=== PATIENT | male | born 1980 | race African-American/Black ===

== ENCOUNTER 2017-07-31 20:09 | Emergency (ER) | payer MEDICAID, OTHER ==
[~2017-07-31] VITALS: Ht 185.4 cm; Wt 113.0 kg
[2017-07-31 20:16] VITALS: BP 142/80
== END 2017-08-01 01:26 | disposition left against medical advice (07) ==
LOC: ER 08-01 00:03
DX: Z53.21 Procedure and treatment not carried out due to patient leaving prior to being seen by health care provider (principal); F17.210 Nicotine dependence, cigarettes, uncomplicated; F15.10 Other stimulant abuse, uncomplicated

== ENCOUNTER 2022-09-04 17:59 | Emergency (ER) | payer MEDICAID ==
[~2022-09-04] VITALS: Ht 177.8 cm; Wt 88.0 kg
[2022-09-05 01:51] VITALS: BP 124/78
== END 2022-09-05 01:57 | disposition left against medical advice (07) ==
LOC: ER 17:59
DX: Z53.21 Procedure and treatment not carried out due to patient leaving prior to being seen by health care provider (principal)

== ENCOUNTER 2022-09-27 16:52 | Emergency (ER) | payer MEDICAID ==
[~2022-09-27] VITALS: Ht 193 cm; Wt 100.0 kg
[2022-09-27 17:56] LABS: *AMPHETAMINES SCREEN URINE PRESUMTIVE POSITIVE (NEGATIVE); *BARBITURATES SCREEN URINE NEGATIVE (NEGATIVE); *BENZODIAZEPINES SCREEN URINE NEGATIVE (NEGATIVE); *COCAINE SCREEN URINE NEGATIVE (NEGATIVE); CANNABINOID URINE SCREEN PRESUMTIVE POSITIVE (NEGATIVE); METHADONE URINE SCREEN NEGATIVE (NEGATIVE); OPIATES URINE SCREEN NEGATIVE (NEGATIVE); PHENCYCLIDINE URINE SCREEN PRESUMTIVE POSITIVE (NEGATIVE)
[2022-09-27 18:36] LABS: EOSINOPHILS % 0.1 % (0.0-5.0); HEMATOCRIT. 34.1 % (42.0-52.0); HEMOGLOBIN. 10.8 g/dL (14.0-18.0); LYMPHOCYTES % 26.5 % (20.0-50.0); MEAN CORPUSCULAR HEMOGLOBIN 23.8 pg (28.0-32.0); MEAN CORPUSCULAR VOLUME 75.4 fL (80.0-94.0); MEAN PLATELET VOLUME 8.3 fl (7.4-10.4); MONOCYTES % 12.1 % (2.0-8.0); NEUTROPHILS % 60.3 % (40.0-76.0); PLATELET 236 x1000/uL (130-400); RED BLOOD CELL COUNT 4.52 mill/uL (4.7-6.1); RED CELL DISTRIBUTION WIDTH 20.6 % (11.6-14.6)
[2022-09-27 18:56] LABS: CHLORIDE 101 mEq/L (98-107)
[2022-09-27 19:05] LABS: ETHANOL BLOOD < 10 mg/dL
[2022-09-27] MEDS ORDERED: ACETAMINOPHEN 325MG TABLET PO ONE (23:45)
[2022-09-27] MEDS ORDERED: LORAZEPAM 1MG TABLET PO ONE (23:45)
[2022-09-28] MEDS ORDERED: IBUPROFEN 600MG TABLET PO ONE
[2022-09-28 05:55] VITALS: BP 132/82
== END 2022-09-28 08:58 | disposition home or self-care (01) ==
LOC: ER 16:52
DX: F19.10 Other psychoactive substance abuse, uncomplicated (principal); F41.9 Anxiety disorder, unspecified; I48.91 Unspecified atrial fibrillation; I50.9 Heart failure, unspecified; I25.2 Old myocardial infarction; Z88.6 Allergy status to analgesic agent; Z88.8 Allergy status to other drugs, medicaments and biological substances; Z86.711 Personal history of pulmonary embolism; Z20.822 Contact with and (suspected) exposure to COVID-19
CPT/HCPCS: 36415; 80053; 80305; 80307; 80320; 80329; 85025; 99285; C9803; U0003; U0005; G0480

== ENCOUNTER 2023-03-19 00:31 | Emergency (ER) | payer MEDICAID ==
[~2023-03-19] VITALS: Ht 182.9 cm; Wt 91.0 kg
[2023-03-19 02:15] LABS: *AMPHETAMINES SCREEN URINE PRESUMTIVE POSITIVE (NEGATIVE); *BARBITURATES SCREEN URINE NEGATIVE (NEGATIVE); *BENZODIAZEPINES SCREEN URINE NEGATIVE (NEGATIVE); *COCAINE SCREEN URINE NEGATIVE (NEGATIVE); CANNABINOID URINE SCREEN PRESUMTIVE POSITIVE (NEGATIVE); METHADONE URINE SCREEN NEGATIVE (NEGATIVE); OPIATES URINE SCREEN PRESUMTIVE POSITIVE (NEGATIVE); PHENCYCLIDINE URINE SCREEN PRESUMTIVE POSITIVE (NEGATIVE)
[2023-03-19 03:09] LABS: HEMATOCRIT. 30.4 % (42.0-52.0); HEMOGLOBIN. 9.5 g/dL (14.0-18.0); MEAN CORPUSCULAR HEMOGLOBIN 23.4 pg (28.0-32.0); MEAN CORPUSCULAR VOLUME 74.6 fL (80.0-94.0); PLATELET 201 x1000/uL (130-400); RED BLOOD CELL COUNT 4.08 mill/uL (4.7-6.1)
[2023-03-19 03:11] LABS: CHLORIDE 100 mEq/L (98-107)
[2023-03-19 03:19] LABS: ETHANOL BLOOD < 10 mg/dL
[2023-03-19 06:00] VITALS: BP 122/78
[2023-03-19 06:42] LABS: PLATELET ESTIMATE NORMAL
== END 2023-03-19 08:48 | disposition home or self-care (01) ==
LOC: ER 00:31
DX: Z00.8 Encounter for other general examination (principal); I48.91 Unspecified atrial fibrillation; F41.9 Anxiety disorder, unspecified; I50.9 Heart failure, unspecified; I25.2 Old myocardial infarction; F19.90 Other psychoactive substance use, unspecified, uncomplicated; Z88.8 Allergy status to other drugs, medicaments and biological substances; Z79.899 Other long term (current) drug therapy
CPT/HCPCS: 36415; 80053; 80305; 80307; 80320; 80329; 85025; 93005; 99284; Z7610; G0480

== ENCOUNTER 2024-10-10 10:40 | Inpatient (IN) | payer MEDICAID ==
[~2024-10-10] VITALS: Ht 198.1 cm; Wt 109.8 kg
[2024-10-10 12:19] LABS: CHLORIDE 107 mEq/L (98-107); POTASSIUM 4.1 mEq/L (3.5-5.1); SODIUM 139 mEq/L (136-145)
[2024-10-10 12:20] LABS: CALCIUM 8.8 mg/dL (8.7-10.4); CARBON DIOXIDE 25 mEq/L (21-32)
[2024-10-10 12:25] LABS: CREATININE 1.2 mg/dL (0.6-1.3); GLUCOSE 84 mg/dL (70-105); TROPONIN I HIGH SENSITIVITY 33 ng/L (3.0-53); UREA NITROGEN BLOOD 12 mg/dL (9-23)
[2024-10-10] MEDS ORDERED: ENALAPRIL 2.5MG/2ML VIAL 2ML IV ONE (12:30)
[2024-10-10] MEDS ORDERED: GUAIFENESIN 200MG/10ML SUGAR FREE UDC PO PRN (12:45)
[2024-10-10] MEDS ORDERED: ZOLPIDEM TARTRATE 5MG TABLET PO PRN (12:45)
[2024-10-10] MEDS ORDERED: MAGNESIUM/ALUMINUM HYDROXIDE/SIMETHICONE 30ML UDC PO PRN (12:45)
[2024-10-10] MEDS ORDERED: CLONIDINE 0.1MG TABLET PO PRN (12:45)
[2024-10-10] MEDS ORDERED: ONDANSETRON HCL 4MG/2ML INJ IV PRN (12:45)
[2024-10-10] MEDS ORDERED: IPRATROPIUM/ALBUTEROL 0.5-3(2.5)MG/3ML NEB NEB PRN (12:45)
[2024-10-10] MEDS ORDERED: DOCUSATE SODIUM 100MG CAPSULE PO PRN (12:45)
[2024-10-10] MEDS ORDERED: NITROGLYCERIN 0.4MG TABLET SL SL PRN (12:45)
[2024-10-10] MEDS ORDERED: ACETAMINOPHEN 325MG TABLET PO PRN ×2 (12:45)
[2024-10-10] MEDS: FUROSEMIDE 40MG/4ML VIAL IVP ONE (13:15)
[2024-10-10] MEDS: ENALAPRIL 1.25MG/ML VIAL 1ML IV NR (13:19)
[2024-10-10 14:40] LABS: FOLIC ACID (FOLATE) SERUM > 20.00 ng/mL (>5.38); VITAMIN B12 SERUM 526 pg/mL (211-911)
[2024-10-10 15:56] LABS: IRON 55 ug/dL (65-175)
[2024-10-10 15:57] LABS: CREATINE KINASE MB FRACTION 2.1 ng/mL (0.5-3.6); TRIGLYCERIDE 42 mg/dL (0-150)
[2024-10-10 15:58] LABS: ETHANOL BLOOD < 10 mg/dL (<10); LDL CHOLESTEROL 97 mg/dL (5-100); TROPONIN I HIGH SENSITIVITY 29 ng/L (3.0-53)
[2024-10-10 15:59] LABS: CHOLESTEROL 138 mg/dL (<200); CREATINE KINASE 70 IU/L (46-171); HDL CHOLESTEROL 31 mg/dL (>55); TOTAL IRON BINDING CAPACITY 328 ug/dl (250-425)
[2024-10-10] MEDS: ENOXAPARIN 40MG/0.4ML SYR SUBCUT SCH (16:00)
[2024-10-10 16:01] LABS: T4 FREE 1.34 ng/dL (0.89-1.76); THYROID STIMULATING HORMONE 1.15 uIU/mL (0.55-4.78)
[2024-10-10 17:03] LABS: HEMATOCRIT. 41.5 % (42.0-52.0); HEMOGLOBIN. 13.2 g/dL (14.0-18.0); MEAN CORPUSCULAR HGB CONC 31.7 g/dL (31.0-37.0); MEAN CORPUSCULAR VOLUME 94.8 fL (80.0-94.0); RED BLOOD CELL COUNT 4.38 mill/uL (4.7-6.1); RED CELL DISTRIBUTION WIDTH 15.6 % (11.6-14.6)
[2024-10-10 17:06] LABS: DIFFERENTIAL COMMENT 1
[2024-10-10] MEDS: FUROSEMIDE 40MG/4ML VIAL IVP SCH (21:00)
[2024-10-10 21:30] VITALS: BP 105/76; PULSE 82; RESP 18; TEMP 36.418
[2024-10-10 22:00] VITALS: BP 105/76; PULSE 82; RESP 18; TEMP 36.3918; O2SAT 96
[2024-10-10] MEDS: FAMOTIDINE 20MG TABLET PO SCH (22:46)
[2024-10-10] MEDS: SPIRONOLACTONE 25MG TABLET PO SCH (22:48)
[2024-10-11] VITALS: BP 131/68; PULSE 86; RESP 18; TEMP 36.6696; O2SAT 98
[2024-10-11 00:30] LABS: CREATINE KINASE MB FRACTION 1.3 ng/mL (0.5-3.6)
[2024-10-11 08:00] VITALS: BP 125/90; PULSE 108; RESP 18; TEMP 36.78072; O2SAT 98
[2024-10-11] MEDS: ASPIRIN 81MG EC TABLET PO SCH (08:51)
[2024-10-11 09:23] LABS: CHLORIDE 104 mEq/L (98-107); POTASSIUM 3.8 mEq/L (3.5-5.1); SODIUM 140 mEq/L (136-145)
[2024-10-11 09:26] LABS: CARBON DIOXIDE 27 mEq/L (21-32)
[2024-10-11 09:27] LABS: CALCIUM 9.3 mg/dL (8.7-10.4)
[2024-10-11 09:31] LABS: CREATININE 1.2 mg/dL (0.6-1.3); GLUCOSE 95 mg/dL (70-105)
[2024-10-11 09:32] LABS: ALANINE AMINOTRANSFERASE 28 IU/L (10-49); UREA NITROGEN BLOOD 14 mg/dL (9-23)
[2024-10-11 09:33] LABS: ALBUMIN 3.6 g/dL (3.2-4.8); ASPARTATE AMINOTRANSFERASE 21 IU/L (<34)
[2024-10-11 09:34] LABS: BILIRUBIN TOTAL 1.8 mg/dL (0.1-1.0); PHOSPHORUS 3.7 mg/dL (2.5-4.9); PROTEIN TOTAL 6.8 g/dL (6.0-8.3)
[2024-10-11 09:58] LABS: HEMATOCRIT. 42.4 % (42.0-52.0); HEMOGLOBIN. 13.4 g/dL (14.0-18.0); MEAN CORPUSCULAR HEMOGLOBIN 29.3 pg (28.0-32.0); MEAN CORPUSCULAR HGB CONC 31.7 g/dL (31.0-37.0); MEAN CORPUSCULAR VOLUME 92.6 fL (80.0-94.0); RED BLOOD CELL COUNT 4.58 mill/uL (4.7-6.1); RED CELL DISTRIBUTION WIDTH 15.1 % (11.6-14.6)
[2024-10-11 10:18] LABS: DIFFERENTIAL COMMENT 1
[2024-10-11 12:00] VITALS: BP 132/101; PULSE 100; RESP 18; TEMP 35.2806; O2SAT 97
[2024-10-11] MEDS: KETOROLAC 15MG/ML VIAL IV PRN (15:46)
[2024-10-11 16:00] VITALS: BP 145/98; PULSE 100; RESP 18; TEMP 35.39172; O2SAT 97
[2024-10-11 18:18] LABS: GIANT PLATELETS 1+; PLATELET ESTIMATE MARKEDLY DECREASED
[2024-10-11 18:33] LABS: MEAN PLATELET VOLUME 10.8 fl (7.4-10.4); PLATELET 28 x1000/uL (130-400)
[2024-10-11] MEDS: POTASSIUM CHLORIDE 20MEQ/PACKET PO NR (21:16)
[2024-10-11] MEDS: PANTOPRAZOLE 40MG DR TABLET PO SCH (21:16)
[2024-10-11 21:44] VITALS: PULSE 114; RESP 24; TEMP 36.3918; O2SAT 97
[2024-10-12 00:20] VITALS: PULSE 114; RESP 24; TEMP 36.3918; O2SAT 97
[2024-10-12] MEDS: MAGNESIUM 1 G PREMIX 100 ML IV NR (01:27)
[2024-10-12 01:59] VITALS: BP 119/84; PULSE 107; RESP 25; TEMP 36.3918; O2SAT 94
[2024-10-12 05:18] VITALS: BP 133/93; PULSE 103; RESP 24; TEMP 35.78064; O2SAT 98
[2024-10-12] MEDS: FUROSEMIDE 40MG/4ML VIAL IVP SCH ×2 (06:00→08:39)
[2024-10-12 08:00] VITALS: BP 136/89; PULSE 116; RESP 20; TEMP 36.44736; O2SAT 98
[2024-10-12 08:59] LABS: CALCIUM 9.3 mg/dL (8.7-10.4); CARBON DIOXIDE 28 mEq/L (21-32); CHLORIDE 102 mEq/L (98-107); POTASSIUM 4.3 mEq/L (3.5-5.1); SODIUM 138 mEq/L (136-145)
[2024-10-12] MEDS ORDERED: ASPIRIN 81MG EC TABLET PO SCH (09:00)
[2024-10-12 09:03] LABS: CREATININE 1.5 mg/dL (0.6-1.3); GLUCOSE 95 mg/dL (70-105)
[2024-10-12 09:05] LABS: UREA NITROGEN BLOOD 24 mg/dL (9-23)
[2024-10-12 09:07] LABS: PHOSPHORUS 4.6 mg/dL (2.5-4.9)
[2024-10-12] MEDS ORDERED: LOSA-412 MT (10:00)
[2024-10-12] MEDS ORDERED: FURO-151 MT (10:00)
[2024-10-12] MEDS ORDERED: MAGN400T26 MT (10:00)
[2024-10-12] MEDS ORDERED: SPIR25TA MT (10:00)
[2024-10-12 10:55] VITALS: BP 136/89; PULSE 116; TEMP 97.6; O2SAT 98
[2024-10-12 11:55] LABS: *AMPHETAMINES SCREEN URINE NEGATIVE (NEGATIVE); *BARBITURATES SCREEN URINE NEGATIVE (NEGATIVE); *BENZODIAZEPINES SCREEN URINE NEGATIVE (NEGATIVE); *COCAINE SCREEN URINE NEGATIVE (NEGATIVE); METHADONE URINE SCREEN NEGATIVE (NEGATIVE)
[2024-10-12 11:56] LABS: CANNABINOID URINE SCREEN NEGATIVE (NEGATIVE); ECSTASY MDMA SCREEN URINE NEGATIVE (NEGATIVE); OPIATES URINE SCREEN NEGATIVE (NEGATIVE); PHENCYCLIDINE URINE SCREEN NEGATIVE (NEGATIVE)
[2024-10-12 12:00] VITALS: BP 132/98; PULSE 111; RESP 20; TEMP 36.44736; O2SAT 96
== END 2024-10-12 13:45 | disposition home or self-care (01) | DRG 194 ==
LOC: ER 10:40 → 8WST 12:29 → EDBEDREQ 12:36
PROVIDERS: ADMIT Internal Medicine; ATTEND Internal Medicine
DX: I11.0 Hypertensive heart disease with heart failure (principal); J96.01 Acute respiratory failure with hypoxia; I50.43 Acute on chronic combined systolic (congestive) and diastolic (congestive) heart failure; I48.91 Unspecified atrial fibrillation; E66.9 Obesity, unspecified; F17.210 Nicotine dependence, cigarettes, uncomplicated; D63.8 Anemia in other chronic diseases classified elsewhere; F41.9 Anxiety disorder, unspecified; Z88.8 Allergy status to other drugs, medicaments and biological substances; Z91.199 Patient's noncompliance with other medical treatment and regimen due to unspecified reason; I25.2 Old myocardial infarction; Z68.28 Body mass index [BMI] 28.0-28.9, adult; F19.10 Other psychoactive substance abuse, uncomplicated
CPT/HCPCS: 36415; 71045; 80048; 80053; 80061; 80305; 80320; 82550; 82553; 82607; 82746; 83036; 83540; 83550; 83735; 83880; 84100; 84439; 84443; 84484; 85025; 93005; 93970; 99285; C1893; J1650; J1885; J1940; J3475; J3490; G0480

== ENCOUNTER 2025-02-05 23:38 | Emergency (ER) | payer MEDICAID ==
[~2025-02-05] VITALS: Ht 193 cm; Wt 102.0 kg
[~2025-02-05 23:38] MED LIST: FURO-151 MT; LOSA-412 MT; MAGN400T26 MT; SPIR25TA MT
[2025-02-05 23:40] VITALS: O2SAT 99
[2025-02-06 00:42] VITALS: TEMP 37.3; O2SAT 99
[2025-02-06 00:55] VITALS: BP 145/82; PULSE 128; RESP 20
[2025-02-06] MEDS: KETOROLAC 30MG/ML VIAL IM ONE (00:55)
== END 2025-02-06 01:42 | disposition left against medical advice (07) ==
LOC: ER 23:38
DX: I87.8 Other specified disorders of veins (principal); M79.604 Pain in right leg; M79.605 Pain in left leg; I11.0 Hypertensive heart disease with heart failure; I50.9 Heart failure, unspecified; I48.91 Unspecified atrial fibrillation; I25.2 Old myocardial infarction; F12.90 Cannabis use, unspecified, uncomplicated; F15.90 Other stimulant use, unspecified, uncomplicated; Z79.899 Other long term (current) drug therapy
CPT/HCPCS: 99283; 96372; J1885